=== PATIENT | male | born 1945 | race Caucasian/White ===

== ENCOUNTER 2018-06-28 05:10 | Inpatient (IN) | payer MEDICARE ==
[~2018-06-28] VITALS: Ht 172.7 cm; Wt 89.0 kg
[2018-06-28] MEDS ORDERED: GABA-529 PO (05:28)
[2018-06-28] MEDS ORDERED: HTN MED PO (05:28)
[2018-06-28 05:30] LABS: GLUCOSE,POINT OF CARE 175 MG/DL (70-110)
[2018-06-28 05:59] LABS: BASOPHILS % (AUTO) 0.4 % (0.0-2.0); EOSINOPHILS % (AUTO) 0.5 % (1.0-6.0); HEMATOCRIT 44.2 % (41-53); HEMOGLOBIN 14.9 g/dL (13.5-17.5); LYMPHOCYTES # (AUTO) 2.2 K/uL (1.0-4.8); LYMPHOCYTES % (AUTO) 22.2 % (22.0-44.0); MEAN CORPUSCULAR HEMOGLOBIN 27.6 pg (26.0-34.0); MEAN CORPUSCULAR HGB CONC 33.7 G/dL (31.0-37.0); MEAN CORPUSCULAR VOLUME 82 fL (80-100); MONOCYTES # (AUTO) 0.4 K/uL (0.1-1.0); MONOCYTES % (AUTO) 3.9 % (2.0-9.0); NEUTROPHILS # (AUTO) 7.1 K/uL (1.8-7.7); PLATELET COUNT (AUTO) 194 K/uL (150-450); RED CELL DISTRIBUTION WIDTH 14.4 % (11.5-14.5)
[2018-06-28] MEDS ORDERED: ONDANSETRON HCL 4 MG/2 ML VIAL IVP ONE (06:00)
[2018-06-28] MEDS ORDERED: ACETAMINOPHEN 500 MG TABLET PO ONE (06:00)
[2018-06-28] MEDS ORDERED: HydrALAZINE HCL 20 MG/ML VIAL IVP ONE (06:00)
[2018-06-28 06:12] LABS: CALCIUM, TOTAL 9.5 mg/dL (8.8-10.5); CREATININE 1.31 mg/dL (0.60-1.30); POTASSIUM 3.9 mmol/L (3.5-5.1)
[2018-06-28 06:13] LABS: PROTHROMBIN TIME 10.7 SEC (9.4-11.6)
[2018-06-28 06:37] LABS: ALBUMIN 3.4 g/dL (3.4-5.0); BILIRUBIN,TOTAL 0.6 mg/dL (0.1-1.0); CKMB RELATIVE INDEX 2.1 % (0.0-4.0); CREATINE KINASE MB 5.6 ng/mL (0-5); TOTAL PROTEIN, SERUM 8.2 g/dL (6.4-8.2)
[2018-06-28] MEDS ORDERED: ASPIRIN 81 MG CHEWABLE TABLET PO ONE (09:00)
[2018-06-28] MEDS ORDERED: NITROGLYCERIN 2% (1 GM=INCH) PACKET TP ONE (09:00)
[2018-06-28] MEDS ORDERED: ENAL10TA2 PO (11:41)
[2018-06-28] MEDS ORDERED: CARV6 PO (11:41)
[2018-06-28] MEDS ORDERED: GABA-531 PO (11:41)
[2018-06-28 11:47] LABS: APPEARANCE,URINE CLEAR (CLEAR); BILIRUBIN,URINE NEGATIVE (NEGATIVE); GLUCOSE, URINE (UA) 100 mg/dL (NEGATIVE); KETONES,URINE NEGATIVE (NEGATIVE); LEUKOCYTE ESTERASE ,URINE NEGATIVE (NEGATIVE); NITRATE,URINE NEGATIVE (NEGATIVE); OCCULT BLOOD,URINE SMALL (NEGATIVE); PH,URINE 6.5 (5.0-8.0); PROTEIN,URINE SEE CONFIRM (NEGATIVE); UROBILINOGEN,URINE 0.2 mg/dL (<=1.0)
[2018-06-28 11:51] LABS: SULFOSALICYLIC ACID,URINE 3+ (Negative)
[2018-06-28 11:53] LABS: BACTERIA,URINE None Seen /HPF (None Seen); SQUAMOUS EPITHELIAL CELL,UR Few /LPF (None Seen); WBC,URINE 0-2 /HPF (0-5)
[2018-06-28] MEDS ORDERED: PROPOFOL 1% 20 ML VIAL IVP ONE (12:00)
[2018-06-28] MEDS ORDERED: 0.9% SODIUM CHLORIDE 10 ML VIAL IVP ONE (12:00)
[2018-06-28] MEDS ORDERED: EPHEDrine SULFATE 50 MG/ML VIAL IM ONE (12:00)
[2018-06-28] MEDS ORDERED: DEXAMETHASONE SOD PHOS 4 MG/ML VIAL IVP ONE (12:00)
[2018-06-28] MEDS ORDERED: LIDOCAINE HCL/PF 2% 5 ML VIAL INJ ONE (12:00)
[2018-06-28 12:08] VITALS: BP 160/97
[2018-06-28] MEDS ORDERED: ONDANSETRON HCL 4 MG/2 ML VIAL IVP PRN ×3 (16:30→21:45)
[2018-06-28] MEDS ORDERED: ZOLPIDEM TARTRATE 10 MG TABLET PO PRN (16:30)
[2018-06-28] MEDS ORDERED: DEXTROSE 50%-WATER 25 GM/50 ML SYRINGE IVP PRN (16:30)
[2018-06-28] MEDS ORDERED: IPRATROPIUM BROMIDE 0.5 MG/2.5 ML NEB SOLUTION NEB PRN (16:30)
[2018-06-28] MEDS ORDERED: ACETAMINOPHEN 325 MG TABLET PO PRN ×2 (16:30→21:45)
[2018-06-28] MEDS ORDERED: MAGNESIUM HYDROXIDE SUSPENSION 30 ML UDCUP PO PRN (16:30)
[2018-06-28] MEDS ORDERED: GABAPENTIN 300 MG CAPSULE PO PRN (16:30)
[2018-06-28 16:37] VITALS: BP 176/92
[2018-06-28] MEDS: MORPHINE SULFATE 2 MG/ML SYRINGE IVP PRN ×2 (17:06→23:11)
[2018-06-28] MEDS ORDERED: RINGERS SOLUTION,LACTATED 1,000 ML IV ONE (18:47)
[2018-06-28] MEDS ORDERED: LIDOCAINE HCL 2%/EPI 1:200,000/PF 20 ML VIAL ONE (18:59)
[2018-06-28] MEDS ORDERED: SODIUM CL IRRIG SOLN BAG 0 ML IRRIG ONE (19:00)
[2018-06-28] MEDS ORDERED: BUPIVACAINE HCL/PF 0.5% 30 ML VIAL ONE (19:00)
[2018-06-28] MEDS ORDERED: GUM MASTIC/STORAX/MSAL/ALCOHOL LIQUID 0.67 ML VIAL TP ONE (19:00)
[2018-06-28] MEDS ORDERED: FentaNYL CITRATE-PF 100 MCG/2 ML VIAL IVP PRN (20:30)
[2018-06-28] MEDS ORDERED: MEPERIDINE HCL/PF 25 MG/0.5 ML AMP IVP PRN (20:30)
[2018-06-28] MEDS ORDERED: HYDROmorphone 2 MG/ML SYRINGE IVP PRN ×2 (20:30→22:15)
[2018-06-28] MEDS ORDERED: BUPIVACAINE HCL/PF 0.25% 30 ML VIAL ONE (21:27)
[2018-06-28] MEDS ORDERED: BUPIVACAINE LIPOSOME/PF 1.3%-13.3MG/ML SUSPENSION 20 ML VIAL INJ ONE (21:30)
[2018-06-28] MEDS ORDERED: LABETALOL HCL 5 MG/ML 20 ML VIAL IVP ONE (22:05)
[2018-06-28] MEDS: LABETALOL HCL 5 MG/ML 20 ML VIAL IVP PRN ×2 (22:06→22:16)
[2018-06-28 22:40] VITALS: BP 199/108
[2018-06-28 23:10] VITALS: BP 188/101
[2018-06-28] MEDS: DOCUSATE SODIUM 100 MG CAPSULE PO SCH (23:10)
[2018-06-28] MEDS: CARVEDILOL 6.25 MG TABLET PO SCH (23:10)
[2018-06-28 23:40] VITALS: BP 194/94
[2018-06-28] MEDS: PIPERACILLIN/TAZO 3.375 GM/D5W 50 ML IV SCH (23:43)
[2018-06-28] MEDS: ACETAMINOPHEN 1000 MG/ISO-OSM 100 ML IV SCH (23:44)
[2018-06-29] VITALS (11 sets, daily range): BP systolic 98–197; BP diastolic 50–100
[2018-06-29] MEDS: LABETALOL HCL 5 MG/ML 20 ML VIAL IVP PRN (00:13)
[2018-06-29] MEDS ORDERED: SODIUM CHLORIDE 0.9% 500 ML IV ONE (00:51)
[2018-06-29] MEDS: PIPERACILLIN/TAZO 3.375 GM/D5W 50 ML IV SCH ×4 (04:50→21:11)
[2018-06-29] MEDS: ACETAMINOPHEN 1000 MG/ISO-OSM 100 ML IV SCH ×3 (05:36→16:00)
[2018-06-29] MEDS: INSULIN LISPRO 100 UNITS/ML SQ PRN ×2 (06:25→11:58)
[2018-06-29 06:32] LABS: CHOL/HDL RATIO 4.5 (4.2-7.3)
[2018-06-29] MEDS ORDERED: PERMETHRIN 5% 60 GM CREAM TP ONE (08:00)
[2018-06-29] MEDS: PANTOPRAZOLE SODIUM 40 MG/VIAL IVP SCH (08:39)
[2018-06-29] MEDS: OXYGEN THERAPY IH SCH ×2 (08:39→21:11)
[2018-06-29] MEDS: CARVEDILOL 6.25 MG TABLET PO SCH ×2 (08:40→21:11)
[2018-06-29] MEDS: ASPIRIN 81 MG CHEWABLE TABLET PO SCH (08:40)
[2018-06-29] MEDS: DOCUSATE SODIUM 100 MG CAPSULE PO SCH ×2 (08:40→21:11)
[2018-06-29] MEDS: ENALAPRIL MALEATE 10 MG TABLET PO SCH (08:40)
[2018-06-29] MEDS: HYDROCODONE/ACETAMINOPHEN 5-325 MG TABLET PO PRN (14:04)
[2018-06-29] MEDS ORDERED: BISACODYL 10 MG RECTAL RECTAL SUPPOSITORY PR PRN (22:15)
[2018-06-29] MEDS ORDERED: ONDANSETRON HCL 4 MG/2 ML VIAL IVP PRN (22:15)
[2018-06-29] MEDS ORDERED: ALBUTEROL SULFATE 2.5 MG/0.5 ML NEB SOLUTION NEB PRN (22:15)
[2018-06-29] MEDS ORDERED: ACETAMINOPHEN 325 MG TABLET PO PRN (22:15)
[2018-06-29] MEDS ORDERED: MORPHINE SULFATE 2 MG/ML SYRINGE IVP PRN (22:15)
[2018-06-29] MEDS ORDERED: HYDROCODONE/ACETAMINOPHEN 5-325 MG TABLET PO PRN (22:15)
[2018-06-29] MEDS ORDERED: ZOLPIDEM TARTRATE 5 MG TABLET PO PRN (22:15)
[2018-06-29] MEDS ORDERED: MAGNESIUM HYDROXIDE SUSPENSION 30 ML UDCUP PO PRN (22:15)
[2018-06-29] MEDS ORDERED: IPRATROPIUM BROMIDE 0.5 MG/2.5 ML NEB SOLUTION NEB PRN (22:15)
[2018-06-29] MEDS: HEPARIN SODIUM,PORCINE 5,000 UNITS/ML VIAL SQ SCH (23:19)
[2018-06-30 00:19] VITALS: BP 127/69
[2018-06-30] MEDS: PIPERACILLIN/TAZO 3.375 GM/D5W 50 ML IV SCH ×4 (03:31→20:24)
[2018-06-30] MEDS ORDERED: OxyCODONE HCL/ACETAMINOPHEN 10-325 MG TABLET PO PRN (04:15)
[2018-06-30] MEDS ORDERED: FentaNYL CITRATE-PF 100 MCG/2 ML VIAL IVP ONE (05:13)
[2018-06-30 05:23] VITALS: BP 128/81
[2018-06-30 06:35] LABS: BASOPHILS % (AUTO) 0.7 % (0.0-2.0); HEMATOCRIT 37.3 % (41-53); HEMOGLOBIN 12.5 g/dL (13.5-17.5); LYMPHOCYTES # (AUTO) 2.7 K/uL (1.0-4.8); LYMPHOCYTES % (AUTO) 30.5 % (22.0-44.0); MEAN CORPUSCULAR HEMOGLOBIN 27.9 pg (26.0-34.0); MEAN CORPUSCULAR HGB CONC 33.6 G/dL (31.0-37.0); MEAN CORPUSCULAR VOLUME 83 fL (80-100); MONOCYTES # (AUTO) 0.7 K/uL (0.1-1.0); MONOCYTES % (AUTO) 7.7 % (2.0-9.0); NEUTROPHILS # (AUTO) 5.3 K/uL (1.8-7.7); NEUTROPHILS % (AUTO) 59.1 % (40.0-70.0); PLATELET COUNT (AUTO) 167 K/uL (150-450); RED CELL DISTRIBUTION WIDTH 14.3 % (11.5-14.5)
[2018-06-30 06:44] LABS: ALBUMIN 2.7 g/dL (3.4-5.0); CALCIUM, TOTAL 8.5 mg/dL (8.8-10.5); CREATININE 2.67 mg/dL (0.60-1.30); POTASSIUM 3.6 mmol/L (3.5-5.1)
[2018-06-30 07:53] VITALS: BP 136/70
[2018-06-30] MEDS: OXYGEN THERAPY IH SCH ×2 (08:00→20:24)
[2018-06-30] MEDS: HEPARIN SODIUM,PORCINE 5,000 UNITS/ML VIAL SQ SCH ×2 (08:50→16:38)
[2018-06-30] MEDS: DOCUSATE SODIUM 100 MG CAPSULE PO SCH ×3 (08:51→20:23)
[2018-06-30] MEDS: ASPIRIN 81 MG CHEWABLE TABLET PO SCH (08:51)
[2018-06-30] MEDS: PANTOPRAZOLE SODIUM 40 MG/VIAL IVP SCH (08:51)
[2018-06-30] MEDS: CARVEDILOL 6.25 MG TABLET PO SCH ×2 (08:51→20:23)
[2018-06-30] MEDS ORDERED: PANTOPRAZOLE SODIUM 40 MG/VIAL IVP SCH (09:00)
[2018-06-30] MEDS: ENALAPRIL MALEATE 10 MG TABLET PO SCH (09:39)
[2018-06-30 11:14] LABS: GLUCOMETER DEV NAME(LOC) 5N 2S; GLUCOSE,POINT OF CARE 228 MG/DL (70-110)
[2018-06-30 11:14] LABS: GLUCOMETER DEV NAME(LOC) 5N 2S; GLUCOSE,POINT OF CARE 238 MG/DL (70-110)
[2018-06-30 11:23] VITALS: BP 138/91
[2018-06-30] MEDS: INSULIN LISPRO 100 UNITS/ML SQ PRN ×2 (12:21→17:39)
[2018-06-30] MEDS: SODIUM CHLORIDE 0.9% 1,000 ML IV SCH (14:28)
[2018-06-30 15:17] VITALS: BP 122/73
[2018-06-30 17:29] LABS: GLUCOMETER DEV NAME(LOC) 5S 1M; GLUCOSE,POINT OF CARE 140 MG/DL (70-110)
[2018-06-30 17:30] LABS: GLUCOMETER DEV NAME(LOC) 5S 1M; GLUCOSE,POINT OF CARE 172 MG/DL (70-110)
[2018-06-30 17:30] LABS: GLUCOMETER DEV NAME(LOC) 5S 1M; GLUCOSE,POINT OF CARE 131 MG/DL (70-110)
[2018-06-30 17:30] LABS: GLUCOMETER DEV NAME(LOC) 5S 1M; GLUCOSE,POINT OF CARE 140 MG/DL (70-110)
[2018-06-30 17:30] LABS: GLUCOMETER DEV NAME(LOC) 5S 1M; GLUCOSE,POINT OF CARE 165 MG/DL (70-110)
[2018-06-30 20:08] VITALS: BP 150/88
[2018-06-30] MEDS: MORPHINE SULFATE 2 MG/ML SYRINGE IVP PRN (21:40)
[2018-07-01] VITALS (7 sets, daily range): BP systolic 144–160; BP diastolic 73–95
[2018-07-01] MEDS: SODIUM CHLORIDE 0.9% 1,000 ML IV SCH ×2 (02:52→20:36)
[2018-07-01] MEDS: PIPERACILLIN/TAZO 3.375 GM/D5W 50 ML IV SCH ×4 (02:52→20:37)
[2018-07-01] MEDS ORDERED: ROCURONIUM BROMIDE 10 MG/ML 5 ML VIAL IVP ONE (05:24)
[2018-07-01] MEDS ORDERED: LIDOCAINE HCL/PF 2% 5 ML VIAL IM ONE (05:24)
[2018-07-01] MEDS ORDERED: PROPOFOL 1% 20 ML VIAL IVP ONE (05:24)
[2018-07-01] MEDS ORDERED: SUCCINYLCHOLINE CHLORIDE 20 MG/ML 10 ML VIAL IVP ONE (05:24)
[2018-07-01] MEDS ORDERED: 0.9% SODIUM CHLORIDE 10 ML VIAL IVP ONE (05:24)
[2018-07-01] MEDS ORDERED: EPHEDrine SULFATE 50 MG/ML VIAL IM ONE (05:24)
[2018-07-01] MEDS: INSULIN LISPRO 100 UNITS/ML SQ PRN ×3 (05:49→20:45)
[2018-07-01 06:36] LABS: BASOPHILS % (AUTO) 0.5 % (0.0-2.0); EOSINOPHILS % (AUTO) 3.4 % (1.0-6.0); HEMATOCRIT 37.6 % (41-53); HEMOGLOBIN 12.5 g/dL (13.5-17.5); LYMPHOCYTES # (AUTO) 2.2 K/uL (1.0-4.8); LYMPHOCYTES % (AUTO) 26.9 % (22.0-44.0); MEAN CORPUSCULAR HEMOGLOBIN 27.9 pg (26.0-34.0); MEAN CORPUSCULAR HGB CONC 33.3 G/dL (31.0-37.0); MEAN CORPUSCULAR VOLUME 84 fL (80-100); MONOCYTES # (AUTO) 0.7 K/uL (0.1-1.0); MONOCYTES % (AUTO) 8.4 % (2.0-9.0); NEUTROPHILS # (AUTO) 4.9 K/uL (1.8-7.7); NEUTROPHILS % (AUTO) 60.8 % (40.0-70.0); PLATELET COUNT (AUTO) 167 K/uL (150-450); RED CELL DISTRIBUTION WIDTH 14.5 % (11.5-14.5)
[2018-07-01 07:14] LABS: ALBUMIN 2.6 g/dL (3.4-5.0); BILIRUBIN,TOTAL 0.8 mg/dL (0.1-1.0); CALCIUM, TOTAL 8.8 mg/dL (8.8-10.5); CREATININE 2.14 mg/dL (0.60-1.30); MAGNESIUM 2.1 mg/dL (1.80-2.40); PHOSPHORUS 2.8 mg/dL (2.5-4.9); POTASSIUM 3.6 mmol/L (3.5-5.1); TOTAL PROTEIN, SERUM 7.3 g/dL (6.4-8.2)
[2018-07-01 08:12] LABS: HEMOGLOBIN A1C 7.4 % (4.5-6.2)
[2018-07-01 08:16] LABS: CREATININE,URINE RANDOM 79.2 mg/dL (30.0-125.0); PROTEIN,URINE RANDOM 59 mg/dL (0-11.9); SODIUM,URINE RANDOM 67 mmol/l (20-110); UREA NITROGEN,URINE RANDOM 673 mg/dL (350-1000)
[2018-07-01] MEDS: DOCUSATE SODIUM 100 MG CAPSULE PO SCH ×2 (08:18→20:37)
[2018-07-01] MEDS: ASPIRIN 81 MG CHEWABLE TABLET PO SCH (08:18)
[2018-07-01] MEDS: CARVEDILOL 6.25 MG TABLET PO SCH ×2 (08:18→20:37)
[2018-07-01] MEDS: PANTOPRAZOLE SODIUM 40 MG/VIAL IVP SCH (08:19)
[2018-07-01] MEDS: HEPARIN SODIUM,PORCINE 5,000 UNITS/ML VIAL SQ SCH ×4 (08:19→23:58)
[2018-07-01] MEDS: OXYGEN THERAPY IH SCH ×2 (08:21→20:44)
[2018-07-01 08:42] LABS: GLUCOMETER DEV NAME(LOC) 5N 1P; GLUCOSE,POINT OF CARE 156 MG/DL (70-110)
[2018-07-01 08:42] LABS: GLUCOMETER DEV NAME(LOC) 5N 1P; GLUCOSE,POINT OF CARE 150 MG/DL (70-110)
[2018-07-01 08:42] LABS: GLUCOMETER DEV NAME(LOC) 5N 1P; GLUCOSE,POINT OF CARE 141 MG/DL (70-110)
[2018-07-01 08:42] LABS: GLUCOMETER DEV NAME(LOC) 5N 1P; GLUCOSE,POINT OF CARE 148 MG/DL (70-110)
[2018-07-01] MEDS: AmLODIPine BESYLATE 5 MG TABLET PO SCH (09:31)
[2018-07-01 09:50] LABS: BILIRUBIN,URINE NEGATIVE (NEGATIVE); GLUCOSE, URINE (UA) NEGATIVE (NEGATIVE); KETONES,URINE NEGATIVE (NEGATIVE); LEUKOCYTE ESTERASE ,URINE NEGATIVE (NEGATIVE); NITRATE,URINE NEGATIVE (NEGATIVE); OCCULT BLOOD,URINE LARGE (NEGATIVE); PH,URINE 5.5 (5.0-8.0); PROTEIN,URINE POS 1+ (NEGATIVE); UROBILINOGEN,URINE 0.2 mg/dL (<=1.0)
[2018-07-01 10:18] LABS: APPEARANCE,URINE HAZY (CLEAR)
[2018-07-01 10:22] LABS: BACTERIA,URINE Few /HPF (None Seen); WBC,URINE 0-2 /HPF (0-5)
[2018-07-01 10:30] LABS: SQUAMOUS EPITHELIAL CELL,UR Rare /LPF (None Seen)
[2018-07-01 12:32] LABS: GLUCOMETER DEV NAME(LOC) 5N 1P; GLUCOSE,POINT OF CARE 187 MG/DL (70-110)
[2018-07-01] MEDS: MORPHINE SULFATE 2 MG/ML SYRINGE IVP PRN (12:55)
[2018-07-02] VITALS (7 sets, daily range): BP systolic 129–175; BP diastolic 64–94
[2018-07-02] MEDS: PIPERACILLIN/TAZO 3.375 GM/D5W 50 ML IV SCH ×4 (03:10→20:10)
[2018-07-02 06:17] LABS: EOSINOPHILS % (AUTO) 4.9 % (1.0-6.0); HEMATOCRIT 35.2 % (41-53); HEMOGLOBIN 11.7 g/dL (13.5-17.5); LYMPHOCYTES # (AUTO) 2.2 K/uL (1.0-4.8); LYMPHOCYTES % (AUTO) 33.3 % (22.0-44.0); MEAN CORPUSCULAR HEMOGLOBIN 28.1 pg (26.0-34.0); MEAN CORPUSCULAR HGB CONC 33.2 G/dL (31.0-37.0); MEAN CORPUSCULAR VOLUME 85 fL (80-100); MONOCYTES # (AUTO) 0.6 K/uL (0.1-1.0); MONOCYTES % (AUTO) 8.8 % (2.0-9.0); NEUTROPHILS # (AUTO) 3.4 K/uL (1.8-7.7); PLATELET COUNT (AUTO) 157 K/uL (150-450); RED BLOOD CELL COUNT(AUTO) 4.15 MIL/uL (4.50-5.90); RED CELL DISTRIBUTION WIDTH 14.6 % (11.5-14.5)
[2018-07-02 07:24] LABS: GLUCOMETER DEV NAME(LOC) 5N 1P; GLUCOSE,POINT OF CARE 146 MG/DL (70-110)
[2018-07-02 07:25] LABS: ALBUMIN 2.3 g/dL (3.4-5.0); BILIRUBIN,TOTAL 0.6 mg/dL (0.1-1.0); CALCIUM, TOTAL 8.5 mg/dL (8.8-10.5); CREATININE 1.83 mg/dL (0.60-1.30); MAGNESIUM 2.2 mg/dL (1.80-2.40); PHOSPHORUS 2.9 mg/dL (2.5-4.9); POTASSIUM 3.4 mmol/L (3.5-5.1); TOTAL PROTEIN, SERUM 6.9 g/dL (6.4-8.2)
[2018-07-02] MEDS: HEPARIN SODIUM,PORCINE 5,000 UNITS/ML VIAL SQ SCH ×3 (08:00→22:56)
[2018-07-02] MEDS: ASPIRIN 81 MG CHEWABLE TABLET PO SCH (08:40)
[2018-07-02] MEDS: AmLODIPine BESYLATE 5 MG TABLET PO SCH (08:40)
[2018-07-02] MEDS: PANTOPRAZOLE SODIUM 40 MG/VIAL IVP SCH (08:40)
[2018-07-02] MEDS: DOCUSATE SODIUM 100 MG CAPSULE PO SCH ×2 (08:40→20:10)
[2018-07-02] MEDS: CARVEDILOL 6.25 MG TABLET PO SCH ×2 (08:45→20:10)
[2018-07-02] MEDS: HYDROCODONE/ACETAMINOPHEN 5-325 MG TABLET PO PRN (08:46)
[2018-07-02] MEDS: OXYGEN THERAPY IH SCH ×2 (08:47→09:00)
[2018-07-02] MEDS ORDERED: POTASSIUM CHLORIDE 10 MEQ ER TABLET PO ONE (09:15)
[2018-07-02 12:23] LABS: GLUCOMETER DEV NAME(LOC) 5N 1P; GLUCOSE,POINT OF CARE 247 MG/DL (70-110)
[2018-07-02 12:28] LABS: GLUCOMETER DEV NAME(LOC) 5S 1M; GLUCOSE,POINT OF CARE 224 MG/DL (70-110)
[2018-07-02] MEDS: INSULIN LISPRO 100 UNITS/ML SQ PRN ×3 (12:59→20:12)
[2018-07-02] MEDS: SODIUM CHLORIDE 0.9% 1,000 ML IV SCH (16:27)
[2018-07-03] MEDS: PIPERACILLIN/TAZO 3.375 GM/D5W 50 ML IV SCH ×4 (03:11→21:14)
[2018-07-03 03:55] VITALS: BP 150/92
[2018-07-03] MEDS: INSULIN LISPRO 100 UNITS/ML SQ PRN ×4 (06:13→21:16)
[2018-07-03 06:44] LABS: BASOPHILS % (AUTO) 0.7 % (0.0-2.0); EOSINOPHILS % (AUTO) 5.9 % (1.0-6.0); HEMATOCRIT 34.2 % (41-53); HEMOGLOBIN 11.4 g/dL (13.5-17.5); LYMPHOCYTES % (AUTO) 32.4 % (22.0-44.0); MEAN CORPUSCULAR HEMOGLOBIN 28.5 pg (26.0-34.0); MEAN CORPUSCULAR HGB CONC 33.5 G/dL (31.0-37.0); MEAN CORPUSCULAR VOLUME 85 fL (80-100); MONOCYTES # (AUTO) 0.5 K/uL (0.1-1.0); MONOCYTES % (AUTO) 7.9 % (2.0-9.0); NEUTROPHILS # (AUTO) 3.3 K/uL (1.8-7.7); NEUTROPHILS % (AUTO) 53.1 % (40.0-70.0); PLATELET COUNT (AUTO) 172 K/uL (150-450); RED BLOOD CELL COUNT(AUTO) 4.02 MIL/uL (4.50-5.90); RED CELL DISTRIBUTION WIDTH 14.3 % (11.5-14.5)
[2018-07-03 07:03] LABS: GLUCOMETER DEV NAME(LOC) 5N 2S; GLUCOSE,POINT OF CARE 121 MG/DL (70-110)
[2018-07-03 07:07] LABS: ALBUMIN 2.5 g/dL (3.4-5.0); BILIRUBIN,TOTAL 0.6 mg/dL (0.1-1.0); CALCIUM, TOTAL 8.5 mg/dL (8.8-10.5); CREATININE 1.84 mg/dL (0.60-1.30); MAGNESIUM 1.9 mg/dL (1.80-2.40); PHOSPHORUS 2.5 mg/dL (2.5-4.9); POTASSIUM 3.7 mmol/L (3.5-5.1); TOTAL PROTEIN, SERUM 7.1 g/dL (6.4-8.2)
[2018-07-03 07:24] VITALS: BP 163/78
[2018-07-03] MEDS: HEPARIN SODIUM,PORCINE 5,000 UNITS/ML VIAL SQ SCH ×3 (08:00→23:45)
[2018-07-03] MEDS: OXYGEN THERAPY IH SCH ×2 (08:00→21:13)
[2018-07-03] MEDS: PANTOPRAZOLE SODIUM 40 MG/VIAL IVP SCH (08:55)
[2018-07-03] MEDS: ASPIRIN 81 MG CHEWABLE TABLET PO SCH (08:56)
[2018-07-03] MEDS: CARVEDILOL 6.25 MG TABLET PO SCH ×2 (08:57→21:13)
[2018-07-03] MEDS: AmLODIPine BESYLATE 5 MG TABLET PO SCH (08:57)
[2018-07-03] MEDS: DOCUSATE SODIUM 100 MG CAPSULE PO SCH ×2 (09:00→21:13)
[2018-07-03 11:23] LABS: GLUCOMETER DEV NAME(LOC) 5N 1P; GLUCOSE,POINT OF CARE 234 MG/DL (70-110)
[2018-07-03 11:23] LABS: GLUCOMETER DEV NAME(LOC) 5N 1P; GLUCOSE,POINT OF CARE 145 MG/DL (70-110)
[2018-07-03 11:23] LABS: GLUCOMETER DEV NAME(LOC) 5N 1P; GLUCOSE,POINT OF CARE 185 MG/DL (70-110)
[2018-07-03 11:32] VITALS: BP 146/78
[2018-07-03] MEDS: SODIUM CHLORIDE 0.9% 1,000 ML IV SCH (13:24)
[2018-07-03 15:49] VITALS: BP 152/81
[2018-07-03 17:38] LABS: GLUCOMETER DEV NAME(LOC) 5S 1M; GLUCOSE,POINT OF CARE 214 MG/DL (70-110)
[2018-07-03 19:22] VITALS: BP 144/64
[2018-07-03 20:39] LABS: GLUCOMETER DEV NAME(LOC) 5N 1P; GLUCOSE,POINT OF CARE 181 MG/DL (70-110)
[2018-07-03 23:36] VITALS: BP 137/60
[2018-07-04] MEDS: PIPERACILLIN/TAZO 3.375 GM/D5W 50 ML IV SCH ×3 (02:37→15:42)
[2018-07-04 02:42] LABS: GLUCOMETER DEV NAME(LOC) 5S 1M; GLUCOSE,POINT OF CARE 230 MG/DL (70-110)
[2018-07-04 04:16] VITALS: BP 135/70
[2018-07-04] MEDS: INSULIN LISPRO 100 UNITS/ML SQ PRN ×3 (05:57→16:57)
[2018-07-04 06:50] LABS: BASOPHILS % (AUTO) 0.5 % (0.0-2.0); EOSINOPHILS % (AUTO) 6.2 % (1.0-6.0); HEMOGLOBIN 11.8 g/dL (13.5-17.5); LYMPHOCYTES # (AUTO) 2.1 K/uL (1.0-4.8); LYMPHOCYTES % (AUTO) 29.5 % (22.0-44.0); MEAN CORPUSCULAR HEMOGLOBIN 28.2 pg (26.0-34.0); MEAN CORPUSCULAR HGB CONC 33.8 G/dL (31.0-37.0); MEAN CORPUSCULAR VOLUME 83 fL (80-100); MONOCYTES # (AUTO) 0.5 K/uL (0.1-1.0); MONOCYTES % (AUTO) 7.1 % (2.0-9.0); NEUTROPHILS % (AUTO) 56.7 % (40.0-70.0); PLATELET COUNT (AUTO) 194 K/uL (150-450); RED CELL DISTRIBUTION WIDTH 14.3 % (11.5-14.5)
[2018-07-04 07:08] LABS: ALBUMIN 2.6 g/dL (3.4-5.0); BILIRUBIN,TOTAL 0.7 mg/dL (0.1-1.0); CALCIUM, TOTAL 8.9 mg/dL (8.8-10.5); CREATININE 1.74 mg/dL (0.60-1.30); MAGNESIUM 1.9 mg/dL (1.80-2.40); PHOSPHORUS 2.8 mg/dL (2.5-4.9); POTASSIUM 3.6 mmol/L (3.5-5.1); TOTAL PROTEIN, SERUM 7.3 g/dL (6.4-8.2)
[2018-07-04 07:34] VITALS: BP 154/76
[2018-07-04] MEDS: CARVEDILOL 6.25 MG TABLET PO SCH (09:08)
[2018-07-04] MEDS: DOCUSATE SODIUM 100 MG CAPSULE PO SCH (09:08)
[2018-07-04] MEDS: ASPIRIN 81 MG CHEWABLE TABLET PO SCH (09:08)
[2018-07-04] MEDS: PANTOPRAZOLE SODIUM 40 MG/VIAL IVP SCH (09:08)
[2018-07-04] MEDS: AmLODIPine BESYLATE 5 MG TABLET PO SCH (09:09)
[2018-07-04] MEDS: HEPARIN SODIUM,PORCINE 5,000 UNITS/ML VIAL SQ SCH ×2 (09:09→16:53)
[2018-07-04] MEDS: OXYGEN THERAPY IH SCH (09:10)
[2018-07-04] MEDS: HYDROCODONE/ACETAMINOPHEN 5-325 MG TABLET PO PRN (09:15)
[2018-07-04 11:27] VITALS: BP 182/97
[2018-07-04 12:19] LABS: GLUCOMETER DEV NAME(LOC) 5N 1P; GLUCOSE,POINT OF CARE 178 MG/DL (70-110)
[2018-07-04 12:19] LABS: GLUCOMETER DEV NAME(LOC) 5N 1P; GLUCOSE,POINT OF CARE 207 MG/DL (70-110)
[2018-07-04] MEDS: SODIUM CHLORIDE 0.9% 1,000 ML IV SCH (12:46)
[2018-07-04 13:50] VITALS: BP 119/60
[2018-07-04 15:04] VITALS: BP 160/80
[2018-07-04] MEDS ORDERED: ASPI81 PO (16:07)
[2018-07-04] MEDS ORDERED: AMLO-511 PO (16:09)
[2018-07-04] MEDS ORDERED: DSS100 PO (16:09)
[2018-07-04] MEDS ORDERED: HEPA500018 SQ (16:10)
[2018-07-04] MEDS ORDERED: PIPE3.3719 IV (16:11)
[2018-07-04] MEDS ORDERED: ACET-2247 PO (16:12)
[2018-07-04] MEDS ORDERED: ZOLP10TA7 PO (16:14)
[2018-07-04] MEDS ORDERED: INSU100V SQ (16:15)
[2018-07-05 07:23] LABS: GLUCOMETER DEV NAME(LOC) 5N 1P; GLUCOSE,POINT OF CARE 187 MG/DL (70-110)
== END 2018-07-04 17:40 | DRG 415 ==
LOC: EMS 05:11 → 5N 10:33
PROVIDERS: ADMIT Hospitalist; ATTEND Hospitalist
PROC: 0FJ44ZZ Inspection of Gallbladder, Percutaneous Endoscopic Approach (ICD-10-PCS; 2018-06-28)
PROC: 0FT40ZZ Resection of Gallbladder, Open Approach (ICD-10-PCS; principal; 2018-06-28 19:00)
DX: K81.0 Acute cholecystitis (principal); N17.9 Acute kidney failure, unspecified; Z89.512 Acquired absence of left leg below knee; J45.909 Unspecified asthma, uncomplicated; E11.40 Type 2 diabetes mellitus with diabetic neuropathy, unspecified; E11.51 Type 2 diabetes mellitus with diabetic peripheral angiopathy without gangrene; H40.9 Unspecified glaucoma; E87.6 Hypokalemia; F32.9 Major depressive disorder, single episode, unspecified; F41.9 Anxiety disorder, unspecified; R80.9 Proteinuria, unspecified; Z53.31 Laparoscopic surgical procedure converted to open procedure; E11.22 Type 2 diabetes mellitus with diabetic chronic kidney disease; I12.9 Hypertensive chronic kidney disease with stage 1 through stage 4 chronic kidney disease, or unspecified chronic kidney disease; N18.9 Chronic kidney disease, unspecified
CPT/HCPCS: 76700; 76770; 82570; 83036; 83735; 84100; 84156; 84300; 84540; 88304; 93005; 93306; 96374; 96375; 97110; 97162; 97167; 97530; 97535; 99285; C9113; C9290; J0131; J0330; J0360; J0690; J1100; J1644; J2270; J2405; J2543; J2704; J3010; J3490; J7030; J7040; J7120